=== PATIENT | male | born 1965 | race African-American/Black ===

== ENCOUNTER 2024-06-09 18:40 | Inpatient (IN) | payer MEDICARE ==
[2024-06-09 18:55] VITALS: BMI 31.4
[2024-06-09] MEDS ORDERED: Ondansetron PF 4 MG/2 ML Vial IVP PRN (19:18)
[2024-06-09] MEDS ORDERED: Calcium Carbonate 500 MG ChewTAB PO PRN (19:18)
[2024-06-09] MEDS ORDERED: Dextrose 5% in Water 1,000 ML IV PRN (19:18)
[2024-06-09] MEDS ORDERED: Guaifenesin DM 100-10/5 ML UDCUP PO PRN (19:18)
[2024-06-09] MEDS ORDERED: Dextrose 50% Abboject 50 ML SYRINGE SLOW IVP PRN (19:18)
[2024-06-09] MEDS ORDERED: Acetaminophen/Codeine 30-300mg Tablet PO PRN (19:18)
[2024-06-09] MEDS ORDERED: Glucagon 1 MG/ML KIT IM PRN (19:18)
[2024-06-09] MEDS ORDERED: Insulin Lispro 100 UNIT/ML 10 ML VIAL SC PRN (19:18)
[2024-06-09] MEDS ORDERED: Acetaminophen 325 MG TAB PO PRN (19:18)
[2024-06-09] MEDS: Lactated Ringer's 1,000 ML IV SCH (20:28)
[2024-06-09 21:08] LABS: Influenza A by NAA Not Detected (NotDetected); Influenza B by NAA Not Detected (NotDetected); RSV by NAA Not Detected (NotDetected); SARS-CoV-2 NAA Rapid Test Not Detected (NotDetected)
[2024-06-09] MEDS: Pantoprazole 40 MG VIAL IVP SCH (21:26)
[2024-06-09] MEDS: traZODone HCl 50 MG TAB PO SCH (21:26)
[2024-06-09] MEDS: metroNIDAZOLE 500 MG in Premix 1 BAG IVPB SCH (21:26)
[2024-06-09] MEDS: Atorvastatin Calcium 40 MG TAB PO SCH (21:26)
[2024-06-09] MEDS: Nicotine 14 MG PATCH TD SCH (21:28)
[2024-06-10] MEDS: FLU (Fluarix Triv) TS24-25(6MOS UP)/PF 45 MCG/0.5 ML Syringe IM ONE (03:51)
[2024-06-10 04:42] LABS: Bilirubin Neg (Negative); Blood, Urine Negative (Negative); Clarity Clear (Clear); Glucose, Urine (Dipstick) >=1000 mg/dL (Negative); Ketone, Urine Negative (Negative); Leukocyte Negative (Negative); Nitrite Negative (Negative); Protein, Urine (Dipstick) Negative (Neg-Trace); Urobilinogen Normal mg/dL (Less than 2)
[2024-06-10 04:52] LABS: Amphetamine Not Detected (NotDetected); Barbiturates Screen Not Detected (NotDetected); Benzodiazepine Screen Not Detected (NotDetected); Cocaine Metabolite Screen Not Detected (NotDetected); Methadone Not Detected (NotDetected); Methamphetamine Not Detected (NotDetected); Opiate Screen Not Detected (NotDetected); Oxycodone Screen Not Detected (NotDetected); Phencyclidine (PCP) Not Detected (NotDetected); THC/Cannabinoid Screen Not Detected (NotDetected); Tricyclic Screen Not Detected (NotDetected)
[2024-06-10 04:57] LABS: #Basophils 0.04 10x3/uL (0.0-0.2); #Eosinophils 0.15 10x3/uL (0.0-0.5); #Neutrophils 5.82 10x3/uL (1.5-8.4); %Basophils 0.4 % (0.0-2.0); %Eosinophils 1.7 % (0.0-6.0); %Lymphocytes 24.7 % (18.0-47.0); %Monocytes 8.8 % (0.0-10.0); %Neutrophils 64.2 % (40.0-75.0); Hematocrit 40.7 % (38.8-50.0); Hemoglobin 14.1 g/dL (13.5-17.5); Mean Corpuscular HGB CONC 34.6 g/dL (32.0-36.0); Mean Corpuscular Hemoglobin 31.3 pg (27.0-33.0); Mean Corpuscular Volume 90.2 fL (81.2-95.1); Mean Platelet Volume 11.3 fL (7.4-10.4); Platelet Count 193 10x3/uL (150-450); Red Blood Cell (RBC) Count 4.51 10x6/uL (4.32-5.72); White Blood Cell (WBC) Count 9.07 10x3/uL (3.5-10.5)
[2024-06-10 05:36] LABS: ALT (SGPT) 15 U/L (Less than 45); AST (SGOT) 18 U/L (11-34); Albumin 3.5 g/dL (3.1-4.5); Alkaline Phosphatase 67 U/L (40-110); Anion Gap 14 mmol/L (10-20); BUN (Urea Nitrogen) 12 mg/dL (8.4-25.7); Bilirubin, Total 0.6 mg/dL (0.3-1.2); Calc. Creatinine Clearance 142 mL/min (70-130); Calcium 8.7 mg/dL (7.8-10.44); Carbon Dioxide 22 mmol/L (22-29); Chloride 110 mmol/L (98-107); Estimated GFR 101; Glucose 99 mg/dL (70-105); Potassium 3.9 mmol/L (3.5-5.1); Protein, Total 6.5 g/dL (6.0-8.3); Sodium 142 mmol/L (136-145)
[2024-06-10 05:38] LABS: Bacteria/HPF Rare-Few HPF (None Seen); RBC/HPF 0-3 HPF (0-3); Squamous Epithelial 0-3 HPF (0-3); WBC/HPF 0-3 HPF (0-3)
[2024-06-10] MEDS: cefTRIAXone\\ROCEPHIN 1 GM in Sodium Chloride 0.9% 100 ML IVPB SCH (05:44)
[2024-06-10] MEDS: Lisinopril 10 MG TAB PO SCH (08:37)
[2024-06-10] MEDS: glipiZIDE 5 MG TAB PO SCH (08:37)
[2024-06-10] MEDS: Pantoprazole 40 MG VIAL IVP SCH (08:38)
[2024-06-10 08:40] LABS: Magnesium 1.8 mg/dL (1.6-2.6); Phosphorus 3.5 mg/dL (2.5-4.5)
[2024-06-10] MEDS: Enoxaparin 40 MG (0.4 mL) SYRINGE SC SCH (08:42)
[2024-06-10 12:04] LABS: Hemoglobin A1c 7.3 % (4.0-6.0)
[2024-06-11] MEDS: Gabapentin 300 MG CAP PO SCH (00:34)
[2024-06-11] MEDS: traMADol HCl 50 MG TAB PO SCH (00:35)
[2024-06-11 04:45] LABS: #Basophils 0.06 10x3/uL (0.0-0.2); #Eosinophils 0.16 10x3/uL (0.0-0.5); #Monocytes 0.66 10x3/uL (0.0-1.1); #Neutrophils 4.26 10x3/uL (1.5-8.4); %Basophils 0.7 % (0.0-2.0); %Monocytes 8.2 % (0.0-10.0); %Neutrophils 52.9 % (40.0-75.0); Hematocrit 41.4 % (38.8-50.0); Hemoglobin 13.9 g/dL (13.5-17.5); Mean Corpuscular HGB CONC 33.6 g/dL (32.0-36.0); Mean Corpuscular Volume 89.4 fL (81.2-95.1); Mean Platelet Volume 10.6 fL (7.4-10.4); Platelet Count 218 10x3/uL (150-450); RBC Distribution Width 12.8 % (11.5-14.5); Red Blood Cell (RBC) Count 4.63 10x6/uL (4.32-5.72); White Blood Cell (WBC) Count 8.06 10x3/uL (3.5-10.5)
[2024-06-11 05:10] LABS: Anion Gap 12 mmol/L (10-20); BUN (Urea Nitrogen) 9 mg/dL (8.4-25.7); Calc. Creatinine Clearance 144 mL/min (70-130); Carbon Dioxide 24 mmol/L (22-29); Chloride 109 mmol/L (98-107); Estimated GFR 101; Glucose 170 mg/dL (70-105); Potassium 4.1 mmol/L (3.5-5.1); Sodium 141 mmol/L (136-145)
[2024-06-11 05:25] LABS: Thyroid Stimulating Hormone 0.9262 uIU/mL (0.35-4.94)
[2024-06-11] MEDS: Cyanocobalamin (Vitamin B-12) 1,000 MCG TAB PO SCH (08:16)
[2024-06-11 08:30] VITALS: BP 143/88; TEMP 98.7
== END 2024-06-11 10:30 | disposition home or self-care (01) | DRG 392 ==
LOC: CSHTELE 18:40 → OBSVTOIN 19:18
PROVIDERS: ADMIT Family Medicine; ATTEND Family Medicine
DX: A09 Infectious gastroenteritis and colitis, unspecified (principal); E87.20 Acidosis, unspecified; I10 Essential (primary) hypertension; E78.5 Hyperlipidemia, unspecified; E11.65 Type 2 diabetes mellitus with hyperglycemia; Z87.820 Personal history of traumatic brain injury; Z79.899 Other long term (current) drug therapy; E11.649 Type 2 diabetes mellitus with hypoglycemia without coma; Z79.84 Long term (current) use of oral hypoglycemic drugs; E86.0 Dehydration; M19.90 Unspecified osteoarthritis, unspecified site
CPT/HCPCS: 0241U; 36415; 36416; 80048; 80053; 80306; 81001; 82607; 83036; 83735; 84100; 84443; 85025; J0696; J2470; J7120